=== PATIENT | male | born 1970 | race Caucasian/White ===

== ENCOUNTER 2016-07-22 16:08 | Emergency (ER) | payer OTHER ==
[~2016-07-22] VITALS: Ht 180.3 cm; Wt 108.9 kg
--- NOTE | 2016-07-22 17:25 | ED CARDIAC/CP/PALPITATIONS ---
History of Present Illness General Chief Complaint: Chest Pain Stated Complaint: CHEST PAIN Source: patient Exam Limitations: no limitations Vital Signs & Intake/Output Vital Signs & Intake/Output Vital Signs Date Time Temp Pulse Resp B/P Pulse O2 O2 Flow FiO2 Ox Delivery Rate 07/22 1616 97.5 91 18 138/86 95 Room Air Allergies Coded Allergies: No Known Allergies (07/22/16) Reconcile Medications Diclofenac Sodium 75 MG TABLET. 1 TAB PO BID PRN PAIN Triage Note: TRIAGE: PT TO ER C/C L CHEST PAIN X 3 DAYS, WAS INTERMITTENT BUT NOW CONSTANT SINCE 1 PM. CURRENTLY RATES 5/10 BUT STATES 10/10 AT WORST. DENIES SOB, NAUSEA OR DIAPHORESIS. STATES PAIN IS WORSE WITH MOVEMENT. HAD EKG DONE IN [place]. Triage Nurses Notes Reviewed? yes HPI: Patient presents for evaluation of a left sided chest pain and left shoulder pain that began about 3 days ago. The mild to moderate pain began as a burning sensation and then became a sharp stabbing pain with radiation to the shoulder. Patient states it feels like "stiff neck". The pain gets worse with burping and coughing and bending the right arm foreword. No associated dyspnea, diaphoresis , abdominal signs or symptoms. Patient is a one pack per day cigarette smoker and does admit to a nonproductive dry hacking smokers cough. f note the patient is no ill contacts including his boss and 2 children. 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 Past History Travel History Traveled to [place] past 21 day No Medical History Any Pertinent Medical History? 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 No Review of Systems Review of Systems Constitutional: Reports: no symptoms. EENTM: Reports: no symptoms. Respiratory: Reports: no symptoms. Cardiovascular: Reports: chest pain. GI: Reports: no symptoms. Genitourinary: Reports: no symptoms. Musculoskeletal: Reports: no symptoms. Skin: Reports: no symptoms. Neurological/Psychological: Reports: no symptoms. Hematologic/Endocrine: Reports: no symptoms. Immunologic/Allergic: Reports: no symptoms. All Other Systems: Reviewed and Negative Physical Exam Physical Exam Cardiovascular: see below Comments: Gen.: Well-nourished, well-developed, no acute respiratory distress. Head: Normocephalic, atraumatic. Eyes: Normal inspection bilaterally Ears: Normal inspection bilaterally Nose: Normal inspection Throat/mouth : Moist mucosa Neck: Supple, full range of motion, no goiter Heart: Regular rate and rhythm, no murmurs rubs or gallops Lungs: Clear to auscultation bilaterally with normal air entry Chest: Patient's pain is reproducible with palpation over the left chest and with arm movements Back: Normal range of motion Abdomen: Soft, nontender, nondistended, normal bowel sounds Extremities: Normal range of motion grossly, equal radial pulses, no cyanosis clubbing or edema Neurologic: Cranial nerves grossly intact, speech is clear Skin: warm and dry Psychiatric: Calm, cooperative, no apparent delusions or hallucinations Core Measures ACS in differential dx? No Severe Sepsis Present: No Septic Shock Present: No Progress Differential Diagnosis: AMI, musculoskeletal pain, pneumonia, pneumothorax, PSVT , PVCs/PACs, unstable angina, V-fib/V-Tach Plan of Care: Orders Procedure Date/time Status TROPONIN LEVEL 07/22 1836 Active EKG 07/22 1609 Active Diagnostic Imaging: Discussed w/RAD: Radiology Read. 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 FINDINGS: The cardiomediastinal silhouette is normal. The lungs are clear. No consolidation, pulmonary edema, pleural effusion, or pneumothorax. Minor degenerative changes of the spine. No acute osseous abnormalities. IMPRESSION: No acute abnormality. DICTATED BY: TYRON MEJIA MD DATE/TIME DICTATED:07/22/161753 HEAD OF RESEARCH & INSIGHTS:JENNIFER DATE/TIME TRANSCRIBED:07/22/161753 CONFIDENTIAL, DO NOT COPY WITHOUT APPROPRIATE AUTHORIZATION. <Electronically signed in Other Vendor System> SIGNED BY: TYRON MEJIA MD 07/22/16 1801 Initial ED EKG: NSR, rate (95) Comments: 07/22/2016 6:38:02 PM patient updated on test results and all questions have been answered. He is PERC Negative. I doubt pulmonary embolism. Given the description of the patient's pain I doubt coronary artery disease. Chest x-ray reveals no pneumothorax or effusion. I feel patient is stable for outpatient management with anti-inflammatory medications and rest. Departure Departure Disposition: HOME OR SELF CARE Condition: Stable Clinical Impression Primary Impression: Chest wall pain Referrals: PATIENT HAS NO PRIMARY CARE DR (PCP/Family) Additional Instructions: Rest, no exertion or heavy lifting. Diclofenac as prescribed for chest wall pain. Follow-up with your primary care physician on Tuesday for reevaluation if not improving. Please note that you have a troponin level outstanding and we will contact you if this requires treatment. Please note that there might be incidental findings in your evaluation that are unrelated to the current emergency department visit. Please notify your primary care doctor about this emergency department visit in order to obtain and review all of the testing performed so that these incidental findings can be monitored as needed. If you had an x-ray performed, please understand that some fractures may not be seen on the initial set of x-rays. If your symptoms persist you might need a repeat set of x-rays to check for such a fracture. If you had a laceration evaluated, please understand that foreign bodies such as glass or wood may not be visible to the naked eye or on plain x-rays. If the wound becomes red, swollen, increasingly more painful or if there is any drainage from the wound, please have it reevaluated by a physician for the possibility of a retained foreign body. Thank you for choosing the [facility] Emergency Department for your care. It was a pleasure to serve you today. Vasquez Caba M.D. [facility] Departure Forms: Customer Survey General Discharge Information Prescriptions: Current Visit Scripts Diclofenac Sodium 1 TAB PO BID PRN PAIN #14 TAB Critical Care Note Critical Care Note Critical Care Time: non-applicable
--- NOTE | 2016-07-22 18:01 | RADIOLOGY REPORT ---
EXAMINATION: XR CHEST CLINICAL INFORMATION: Left chest pain, cough, smoker COMPARISON: None TECHNIQUE: 2 views of the chest were obtained. FINDINGS: The cardiomediastinal silhouette is normal. The lungs are clear. No consolidation, pulmonary edema, pleural effusion, or pneumothorax. Minor degenerative changes of the spine. No acute osseous abnormalities. IMPRESSION: No acute abnormality.
[2016-07-22] MEDS ORDERED: DICLOFENAC SODI75 M2 PO (18:39)
[2016-07-22 19:03] VITALS: BP 122/71
== END 2016-07-22 19:10 ==
LOC: ERH 16:08
DX: R07.89 Other chest pain (principal)
CPT/HCPCS: 93005; 93010